=== PATIENT | male | born 1950 | race Caucasian/White ===

== ENCOUNTER 2022-04-07 13:38 | Observation (INO) ==
--- NOTE | 2022-04-07 14:06 | Emergency Department Note ---
HPI General Chief complaint: Neuro Symptoms/Deficit Stated complaint: Right sided Weakness Time Seen by Provider: 04/07/22 14:03 Source: patient Mode of arrival: ambulatory Limitations: no limitations History of Present Illness HPI Narrative: Narrative: Patient is a 71-year-old male with a complex past medical history presents to the emergency department due to concern for stroke. Patient was seen yesterday, and at that time there was concern for stroke as well. It was recommended patient be admitted, but patient requested outpatient work-up for stroke. Patient returns today because of worsening of his symptoms. He states that he has had the symptoms for approximately a day and a half at this time. He endorses slurred speech and right-sided weakness, as well as difficulty with balance because of this right-sided weakness. He states that this has worsened since yesterday. Patient also endorses right-sided facial droop. He states that he had headache this morning, but this has resolved. He also endorses a brief episode of chest pain last night that quickly resolved. He had difficulty describing this pain, but states he is not concerned about it now because it resolved. He endorses burning with urination. He denies any other symptoms at this time. Related Data Home Medications Medication Instructions Recorded Confirmed blood sugar diagnostic (ReliOn #10 ea 01/05/19 02/14/22 Prime Test Strips) blood-glucose meter (ReliOn Micro #1 ea 01/05/19 02/14/22 Glucose Monitor kit) cilostazol 100 mg tablet 100 mg PO BID 01/05/19 02/14/22 clopidogrel 75 mg tablet 75 mg PO QDAY 01/05/19 02/14/22 fenofibrate 160 mg tablet 160 mg PO QDAY 01/05/19 02/14/22 ipratropium 0.5 mg-albuterol 3 mg 3 ml inhalation QID PRN 01/05/19 02/14/22 (2.5 mg base)/3 mL nebulization soln lancets 26 gauge (ReliOn Thin #50 ea 01/05/19 02/14/22 Lancets) nitroglycerin 0.4 mg sublingual 0.4 mg sublingual Q5-15M PRN 03/29/19 02/14/22 tablet (Nitrostat) metformin 500 mg tablet,extended 1,000 mg PO BID 12/08/21 07/07/22 release 24 hr Previous Rx's Medication Instructions Recorded eplerenone 25 mg tablet 25 mg PO QDAY #60 tabs 08/29/21 febuxostat 80 mg tablet (Uloric) 40 mg PO QDAY #90 tabs 12/20/21 Allergies Allergy/AdvReac Type Severity Reaction Status Date / Time clindamycin Allergy Unknown Abdominal Verified 02/14/22 09:00 Pain Penicillins Allergy Unknown Abdominal Verified 02/14/22 09:00 Pain, anaphylaxis Sulfa (Sulfonamide Allergy Unknown Abdominal Verified 02/14/22 09:00 Antibiotics) Pain, anaphylaxis sulfate ion Allergy Unknown Unknown Verified 02/14/22 09:00 allopurinol Allergy skin Verified 02/14/22 09:00 peeling, blister ciprofloxacin AdvReac Intermediate Confusion Verified 02/14/22 09:00 fentanyl AdvReac Intermediate convulsions Verified 02/14/22 09:00 meperidine [From Demerol] AdvReac Intermediate heart Verified 02/14/22 09:00 palpitations nitrofurantoin AdvReac Intermediate Confusion Verified 02/14/22 09:00 spironolactone AdvReac Intermediate Swelling Verified 02/14/22 09:00 [From Aldactone] of Lip/Tongue/Throat Review of Systems ROS ROS Narrative: Narrative: Constitutional: Reports weakness (Right-sided); Denies fever Eyes: Denies eye pain or vision change ENT ED: Denies throat pain, hearing loss or rhinorrhea Cardiovascular: Reports chest pain (Brief yesterday evening, resolved); Denies dyspnea on exertion, orthopnea or edema Respiratory: Denies shortness of breath or cough Gastrointestinal: Denies abdominal pain, nausea, vomiting, diarrhea, constipation, hematochezia or melena Genitourinary: Reports dysuria; Denies frequency, hematuria or incontinence Musculoskeletal: Denies back pain or myalgia Integumentary: Denies rash or lesions Neurological: Reports headache (Brief this morning, resolved), weakness (Right- sided) and other (Right-sided facial droop and slurred speech); Denies numbness, confusion, abnormal gait or dizziness Psychiatric: Reports as per HPI and anxiety [facility] Narrative Patient History Narrative: Narrative: Medical/Surgical/Family History All Active Problems (Updated 04/07/22 @ 15:16 by Slava Mai MD) Dizziness (Chronic) Renal stone (Chronic) Renal cyst (Chronic) Diabetes (Chronic) Hyperlipidemia (Chronic) Obesity (Chronic) Tobacco dependence syndrome (Chronic) Persistent insomnia (Chronic) EVERETT (obstructive sleep apnea) (Chronic) Benign essential hypertension (Chronic) PVD (peripheral vascular disease) (Chronic) COPD (chronic obstructive pulmonary disease) (Chronic) Chronic GERD (Chronic) Mass of urinary bladder (Chronic) BPH with urinary obstruction (Chronic) Generalized osteoarthritis of multiple sites (Chronic) Injury of median nerve (Chronic) Gout (Chronic) Dissection of abdominal aorta (Chronic) Right lower quadrant abdominal pain (Chronic) Confusional state (Chronic) Lower urinary tract symptoms (LUTS) (Chronic) Hematuria (Chronic) Urinary retention (Chronic) Foot pain, right (Chronic) Fatigue (Chronic) Pulse irregularity (Chronic) Chest pain (Chronic) SOB (shortness of breath) (Chronic) Suprapubic catheter (Chronic) Urethral stricture (Chronic) Medullary sponge kidney (Chronic) Acute retention of urine (Acute) Urinary tract infection (Acute) Weakness (Acute) [place] (Acute) Cigarette smoker (Acute) Recurrent nephrolithiasis (Chronic) Chronic Kidney Disease (Acute) Hypercalciuria (Acute) Contusion of head (Acute) Acute UTI (Acute) Hyperuricemia (Acute) Atypical chest pain (Acute) Anxiety (Acute) CKD stage G3a/A2, GFR 45-59 and albumin creatinine ratio 30-299 mg/g (Acute) DM type 2 (diabetes mellitus, type 2) (Acute) Bladder cancer (Acute) Diverticulitis (Acute) Fever (Acute) Chronic UTI (Acute) Abdominal pain (Acute) Diverticulitis (Acute) Cyst (Acute) Essential hypertension (Acute) Stroke (Acute) Stroke (Acute) Medical History Abnormal PFT Acute retention of urine Benign essential hypertension Goal BP 130/80 which is achieved at present. BPH with urinary obstruction Chest pain Chronic GERD Confusional state COPD (chronic obstructive pulmonary disease) Diabetes Dissection of abdominal aorta Fatigue Fever Foot pain, right Generalized osteoarthritis of multiple sites Gout Hematuria Hyperlipidemia On simvastatin Injury of median nerve Closed Lower urinary tract symptoms (LUTS) Mass of urinary bladder Medullary sponge kidney As above Obesity EVERETT (obstructive sleep apnea) Pancreatitis Persistent insomnia Pulse irregularity PVD (peripheral vascular disease) carotid, ascad, AAA and iliac involvement Still smokes DM and HTN as well Recurrent nephrolithiasis Passes 2 or 3 stones a year since an early age. About half of his siblings have had kidney stone disease. None of his siblings have any documentation of medullary sponge kidney. There is CT evidence of Ca+2 stone and what radiologist called vascular but limited to medullary portion of the kidney and family Hx of stone formers is c/w Medullary Sponge Kidney Renal cyst Renal stone 6-7 a year for several years Right lower quadrant abdominal pain SOB (shortness of breath) Suprapubic catheter Tobacco dependence syndrome Urethral stricture Urinary retention Urinary tract infection Surgical History H/O excision of mass (07/26/18) Bladder mass History of suprapubic catheter History of surgery Attempted peripheral vascular stents was too extensive of blockage to have any success. Family History Mother , at age 91 Breast cancer Hypertension Father , at age 76 Alzheimers disease Sister COPD (chronic obstructive pulmonary disease) Social History Alcohol Intake Frequency: does not drink Substance Use: does not use Exam Narrative Narrative: Narrative: General Limitations: no limitations General appearance: Present alert and in no apparent distress; Absent anxious or appears intoxicated Head Head: Present atraumatic and normocephalic Eye Eye: Present PERRL, EOMI and visual mustafa intact; Absent scleral icterus or nystagmus ENT ENT: Present mucous membranes moist; Absent nasal congestion Neck Neck: Present full ROM; Absent tenderness Chest Chest: Present normal inspection and symmetric chest wall rise; Absent tenderness Respiratory Respiratory: Present normal lung sounds bilaterally; Absent respiratory distress or accessory muscle use Cardiovascular Cardiovascular: Present regular rate, normal rhythm and normal heart sounds Adbominal Abdominal: Present soft and normal bowel sounds; Absent distention or tenderness Extremities Extremities: Present normal inspection and full ROM; Absent tenderness Back Back: Present normal inspection and full ROM; Absent tenderness Neurological Neurological: Present alert, oriented X3, motor sensory deficit and reflexes normal; Absent CN II-XII intact Psychiatric Psychiatric: Present normal affect and normal mood Skin Skin: Present warm (WNL), dry and normal color Course Vital Signs Vital signs: Vital Signs Pulse Rate 73 04/07/22 14:05 Respiratory Rate 21 04/07/22 14:05 Pulse Oximetry (%) 93 04/07/22 14:05 Pulse Rate 67 04/07/22 14:24 Respiratory Rate 22 04/07/22 14:24 Blood Pressure 159/77 04/07/22 14:24 Pulse Oximetry (%) 94 04/07/22 14:24 MDM MDM Narrative Medical decision making narrative: Narrative: Patient is a 71-year-old male who presents to the emergency department due to concern for worsening strokelike symptoms. Because patient was seen yesterday and had a evaluation performed I spoke to neurology who recommended the same recommendations as yesterday. I spoke to patient about these recommendations and he agreed to admission at this time. Because of patient's headache this morning a CT scan without contrast of the head was performed. I did not see any findings concerning for intracranial bleed. I did speak to our hospitalist who has agreed to see and evaluate patient for admission. Lab Data Result diagrams: 04/07/22 13:50 Labs: Lab Results 04/07/22 04/07/22 Range/Units 13:50 14:12 WBC 7.9 (4.5-11.0) K/mcL RBC 5.81 (4.63-6.08) M/mcL Hgb 16.0 (13.7-17.5) g/dL Hct 49.8 (40.1-51.0) % POC Hct 51.0 (41-55) MCV 85.7 (80.0-100.0) fL MCH 27.5 (26.0-34.0) pg MCHC 32.1 (31.0-36.0) g/dL RDW 15.9 H (11.5-14.5) % Plt Count 365 (140-440) K/mcL MPV 9.5 (7.4-10.4) fL Immature Gran % (Auto) 0.6 H (0.0-0.5) % Neut % (Auto) 63.6 (38.0-78.0) % Lymph % (Auto) 23.4 (15.5-49.0) % [place] % (Auto) 7.9 (1.0-12.0) % Eos % (Auto) 3.2 (0.0-7.0) % Baso % (Auto) 1.3 (0.0-2.0) % Lymph # (Auto) 1.84 (1.50-4.80) K/mcL [place] # (Auto) 0.62 (0.10-0.90) K/mcL Eos # (Auto) 0.25 (0.00-0.70) K/mcL Baso # (Auto) 0.10 (0.00-0.30) K/mcL Immature Gran # 0.05 (0.00-0.05) K/mcl Absolute Neutrophils 5.00 (1.80-8.00) K/mcL POC Sodium 141 (133-145) POC Potassium 4.3 (3.3-5.1) POC Chloride 104 (96-108) POC Total CO2 25.0 (22-30) POC BUN 23 H (6-20) POC Creatinine 1.4 H (0.6-1.2) POC Glucose 95 (70-105) POC WB Ioniz Calcium 1.21 (1.16-1.32) Discharge Plan Patient/Caregiver Discharge Instructions Pt seen by SR. UNIX SYSTEM ADMINISTRATOR/PA only: No Clinical Impression: Stroke Patient Disposition: Xfer As Inpt ([facility]) Follow up with: Radha Stubbs ARNP [Primary Care Provider] - Prescriptions: No Action eplerenone 25 mg tablet 25 mg PO QDAY Qty: 60 11RF Rx Instructions: Replaces spironolactone due to adverse Rxn to spironolactone febuxostat [Uloric] 80 mg tablet 40 mg PO QDAY Qty: 90 3RF Rx Instructions: Rash with Allopurinol Gout and Uric acid stones and uric acid level > 11 Febuxostat is the only safe medical option for him...he failed allopurinol due to allergic reaction cilostazol 100 mg tablet 100 mg PO BID clopidogrel 75 mg tablet 75 mg PO QDAY fenofibrate 160 mg tablet 160 mg tablet 160 mg PO QDAY ipratropium-albuterol 0.5 mg-3 mg(2.5 mg base)/3 mL solution for nebulization 3 ml INHALATION QID PRN (DME) blood-glucose meter [ReliOn Micro Glucose Monitor] kit See Dose Instructions .ROUTE .MEDSUPPLY Qty: 1 Rx Instructions: As directed (DME) ReliOn Prime Test Strips strip See Dose Instructions .ROUTE .MEDSUPPLY Qty: 10 Rx Instructions: As directed (DME) lancets [ReliOn Thin Lancets] 26 gauge misc See Dose Instructions .ROUTE .MEDSUPPLY Qty: 50 Rx Instructions: As directed metformin 500 mg tablet extended release 24 hr 1,000 mg PO BID nitroglycerin [Nitrostat] 0.4 mg tablet, sublingual 0.4 mg SUBLINGUAL Q5-15M PRN fluticasone furoate [Arnuity Ellipta] 100 mcg/actuation blister with device 0RF
[2022-04-07 14:15] LABS: POC Calcium, Ionized 1.21 (1.16-1.32); POC Creatinine 1.4 (0.6-1.2); POC Potassium 4.3 (3.3-5.1)
[2022-04-07 14:37] LABS: Basophils % (Auto) 1.3 % (0.0-2.0); Eosinophils # (Auto) 0.25 K/mcL (0.00-0.70); Eosinophils % (Auto) 3.2 % (0.0-7.0); Hematocrit 49.8 % (40.1-51.0); Lymphocytes # (Auto) 1.84 K/mcL (1.50-4.80); Lymphocytes % (Auto) 23.4 % (15.5-49.0); Mean Cell Volume 85.7 fL (80.0-100.0); Mean Corpuscular HGB Conc 32.1 g/dL (31.0-36.0); Mean Platelet Volume 9.5 fL (7.4-10.4); Monocytes # (Auto) 0.62 K/mcL (0.10-0.90); Monocytes % (Auto) 7.9 % (1.0-12.0); Neutrophils % (Auto) 63.6 % (38.0-78.0); Platelet Count 365 K/mcL (140-440); RBC 5.81 M/mcL (4.63-6.08); Red Cell Distribution Width 15.9 % (11.5-14.5); WBC 7.9 K/mcL (4.5-11.0)
--- NOTE | 2022-04-07 15:23 | Cat Scan Report ---
CLINICAL INFORMATION: Headache facial droop right-sided weakness possible CVA or the past 1.5 days COMPARISON: None. TECHNIQUE: 2.5 mm helical slices were obtained in the skull base to vertex. Following reconstruction, axial reformatted images were reviewed at bone and parenchymal windows. The exam was performed using radiation dose optimization techniques including, but not limited to, automated exposure control, adjustment of the mA and/or kV according to patient size and use of iterative reconstruction technique. FINDINGS: The ventricles, sulci, fissures, and cisterns are symmetrically enlarged compatible with mild age-related atrophy. No extra-axial fluid collections are identified. Mild patchy chronic ischemic changes, in the deep cerebral white matter, are expected for age. There is no hemorrhage, mass effect, or edema. Bone windows show no osseous abnormality. IMPRESSION: Mild atrophy and chronic ischemic changes in the deep cerebral white matter-expected for age. No change from CT yesterday. No acute findings 14 mm scalp lesion in the left occipital region is actually unchanged from the remote study 2020. This is likely a epidermoid cyst or other benign entity. Please correlate with physical exam findings Interpreted and Authenticated by: Tez Giordano 04/07/22
--- NOTE | 2022-04-07 15:38 | Internal Med History&Physical ---
HPI History of Present Illness Patient information: Note initiated : 04/07/22 at 3:28 pm Service Date, if different from initiated Date: [] Patient: Tk Maria 71 y/o M admitted on for Right sided Weakness. Chief Complaint: [] History of present illness: Mr. Maria is a 71 year old M Patient presents to the ED again today with right-sided weakness. He was here yesterday for the following reason, see HPI: [[[[Presents today to the hospital with generalized weakness and slurring and difficulty ambulating. Patient is a retired nurse. He states that yesterday around noon he started developing weakness and his noticed slurring of speech, he also felt a little foggy mentally. He did not think too much of it or thought it would pass. This morning he felt mentally more clear but when he got up to walk he felt very unstable on his feet and he also had difficulty in coordination with his right upper extremity while drinking coffee. He also continued to have the slurring for his . In the ED he had a stroke work-up including CTA head and neck which was negative per ED physician. Pending official report. Patient was hypertensive (SBP 180's) on admission and states his systolic blood pressure typically runs in the 150s Patient has a history of COPD not on home oxygen as well as obstructive sleep apnea used to wear CPAP but does not wear anymore. History of diabetes. Vascular disease and still smoking 2 to 3 packs a day stating he cut down from 5 in the past.]]]] He state this morning he felt the symptoms are worse with worsening right-sided weakness and more slurring. He also says he has a urinary tract infection that he knows because of the burning and the smell. He has a suprapubic catheter. No other complaints other than some diarrhea which he said he has on and off. Stroke protocol initiated in the ED. No acute findings on the imaging. Case discussed kevin with stroke neurology. BUN/creatinine elevated. Patient states he took a full dose aspirin this morning as well as his Plavix. I do not see any statins on his medication list but I do see fenofibrate. Review of Systems: Pertinent positives as above. Denies headache/fever/chills/nausea/vomiting/chest or abdominal pain/cough/dyspnea. Remaining 10 point review of system reviewed negative PFSH PFSH All Active Problems (Updated 04/07/22 @ 15:16 by Slava Mai MD) Dizziness (Chronic) Renal stone (Chronic) Renal cyst (Chronic) Diabetes (Chronic) Hyperlipidemia (Chronic) Obesity (Chronic) Tobacco dependence syndrome (Chronic) Persistent insomnia (Chronic) EVERETT (obstructive sleep apnea) (Chronic) Benign essential hypertension (Chronic) PVD (peripheral vascular disease) (Chronic) COPD (chronic obstructive pulmonary disease) (Chronic) Chronic GERD (Chronic) Mass of urinary bladder (Chronic) BPH with urinary obstruction (Chronic) Generalized osteoarthritis of multiple sites (Chronic) Injury of median nerve (Chronic) Gout (Chronic) Dissection of abdominal aorta (Chronic) Right lower quadrant abdominal pain (Chronic) Confusional state (Chronic) Lower urinary tract symptoms (LUTS) (Chronic) Hematuria (Chronic) Urinary retention (Chronic) Foot pain, right (Chronic) Fatigue (Chronic) Pulse irregularity (Chronic) Chest pain (Chronic) SOB (shortness of breath) (Chronic) Suprapubic catheter (Chronic) Urethral stricture (Chronic) Medullary sponge kidney (Chronic) Acute retention of urine (Acute) Urinary tract infection (Acute) Weakness (Acute) [place] (Acute) Cigarette smoker (Acute) Recurrent nephrolithiasis (Chronic) Chronic Kidney Disease (Acute) Hypercalciuria (Acute) Contusion of head (Acute) Acute UTI (Acute) Hyperuricemia (Acute) Atypical chest pain (Acute) Anxiety (Acute) CKD stage G3a/A2, GFR 45-59 and albumin creatinine ratio 30-299 mg/g (Acute) DM type 2 (diabetes mellitus, type 2) (Acute) Bladder cancer (Acute) Diverticulitis (Acute) Fever (Acute) Chronic UTI (Acute) Abdominal pain (Acute) Diverticulitis (Acute) Cyst (Acute) Essential hypertension (Acute) Stroke (Acute) Stroke (Acute) Medical History Abnormal PFT Acute retention of urine Benign essential hypertension Goal BP 130/80 which is achieved at present. BPH with urinary obstruction Chest pain Chronic GERD Confusional state COPD (chronic obstructive pulmonary disease) Diabetes Dissection of abdominal aorta Fatigue Fever Foot pain, right Generalized osteoarthritis of multiple sites Gout Hematuria Hyperlipidemia On simvastatin Injury of median nerve Closed Lower urinary tract symptoms (LUTS) Mass of urinary bladder Medullary sponge kidney As above Obesity EVERETT (obstructive sleep apnea) Pancreatitis Persistent insomnia Pulse irregularity PVD (peripheral vascular disease) carotid, ascad, AAA and iliac involvement Still smokes DM and HTN as well Recurrent nephrolithiasis Passes 2 or 3 stones a year since an early age. About half of his siblings have had kidney stone disease. None of his siblings have any documentation of medullary sponge kidney. There is CT evidence of Ca+2 stone and what radiologist called vascular but limited to medullary portion of the kidney and family Hx of stone formers is c/w Medullary Sponge Kidney Renal cyst Renal stone 6-7 a year for several years Right lower quadrant abdominal pain SOB (shortness of breath) Suprapubic catheter Tobacco dependence syndrome Urethral stricture Urinary retention Urinary tract infection Surgical History H/O excision of mass (07/26/18) Bladder mass History of suprapubic catheter History of surgery Attempted peripheral vascular stents was too extensive of blockage to have any success. Family History Mother , at age 91 Breast cancer Hypertension Father , at age 76 Alzheimers disease Sister COPD (chronic obstructive pulmonary disease) Social History household members: alone education level: college occupational status: retired occupation: RN hx recent travel: No other: Children-7 alcohol intake frequency: does not drink substance use type: does not use seatbelt use: always working smoke detector in home: Yes firearms in home: No MEDS/ALLERGIES Home Medications and Allergies Home Medications Medication Instructions Recorded Confirmed Type blood sugar diagnostic (ReliOn #10 ea 01/05/19 02/14/22 History Prime Test Strips) blood-glucose meter (ReliOn Micro #1 ea 01/05/19 02/14/22 History Glucose Monitor kit) cilostazol 100 mg tablet 100 mg PO BID 01/05/19 02/14/22 History clopidogrel 75 mg tablet 75 mg PO QDAY 01/05/19 02/14/22 History fenofibrate 160 mg tablet 160 mg PO QDAY 01/05/19 02/14/22 History ipratropium 0.5 mg-albuterol 3 mg 3 ml inhalation QID PRN 01/05/19 02/14/22 History (2.5 mg base)/3 mL nebulization soln lancets 26 gauge (ReliOn Thin #50 ea 01/05/19 02/14/22 History Lancets) nitroglycerin 0.4 mg sublingual 0.4 mg sublingual Q5-15M PRN 03/29/19 02/14/22 History tablet (Nitrostat) metformin 500 mg tablet,extended 1,000 mg PO BID 07/18/21 02/14/22 History release 24 hr eplerenone 25 mg tablet 25 mg PO QDAY #60 tabs 08/29/21 02/14/22 Rx febuxostat 80 mg tablet (Uloric) 40 mg PO QDAY #90 tabs 12/20/21 02/14/22 Rx Allergies Allergy/AdvReac Type Severity Reaction Status Date / Time clindamycin Allergy Unknown Abdominal Verified 02/14/22 09:00 Pain Penicillins Allergy Unknown Abdominal Verified 02/14/22 09:00 Pain, anaphylaxis Sulfa (Sulfonamide Allergy Unknown Abdominal Verified 02/14/22 09:00 Antibiotics) Pain, anaphylaxis sulfate ion Allergy Unknown Unknown Verified 02/14/22 09:00 allopurinol Allergy skin Verified 02/14/22 09:00 peeling, blister ciprofloxacin AdvReac Intermediate Confusion Verified 02/14/22 09:00 fentanyl AdvReac Intermediate convulsions Verified 02/14/22 09:00 meperidine [From Demerol] AdvReac Intermediate heart Verified 02/14/22 09:00 palpitations nitrofurantoin AdvReac Intermediate Confusion Verified 02/14/22 09:00 spironolactone AdvReac Intermediate Swelling Verified 02/14/22 09:00 [From Aldactone] of Lip/Tongue/Throat EXAM Constitutional Vitals: Pulse Resp BP Pulse Ox 67 22 159/77 94 04/07/22 14:24 04/07/22 14:24 04/07/22 14:24 04/07/22 14:24 Exam: General: Alert, Awake, No acute Distress, obese Eyes/N/T: EOMI, PERRL,dryM Head/Neck: neck supple, normocephalic atraumatic CV: RRR, No murmurs, normal s1/s2 Pulm: Clear b/l, no wheezing/rhonchi/rales Abd: soft, nontender, +BS x4 Ext: no clubbing/cyanosis/edema Neuro: Alert, moves all extremities, right hemiplegia Arm>>>Leg, subtle slurring and slow speech but it is clear when he makes any effort. sensations intact b/l upper/lower. Face is symmetrical when he smiles. He also has dysmetria of the right upper extremity. No pronator drift Skin: warm/dry DATA Data Completed and Pending Labs: Labs from last 24 hours 04/07/22 04/07/22 14:12 13:50 WBC 7.9 RBC 5.81 Hgb 16.0 Hct 49.8 POC Hct 51.0 MCV 85.7 MCH 27.5 MCHC 32.1 RDW 15.9 H Plt Count 365 MPV 9.5 Immature Gran % (Auto) 0.6 H Neut % (Auto) 63.6 Lymph % (Auto) 23.4 [place] % (Auto) 7.9 Eos % (Auto) 3.2 Baso % (Auto) 1.3 Lymph # (Auto) 1.84 [place] # (Auto) 0.62 Eos # (Auto) 0.25 Baso # (Auto) 0.10 Immature Gran # 0.05 Absolute Neutrophils 5.00 POC Sodium 141 POC Potassium 4.3 POC Chloride 104 POC Total CO2 25.0 POC BUN 23 H POC Creatinine 1.4 H POC Glucose 95 POC WB Ioniz Calcium 1.21 A/P Narrative A/P Narrative: A: *Strokelike symptoms w/Righ hemiparesis Arm>>leg & RUE Dysmetria: -ABCD=6 -has been on plavix *FAUSTO on CKD II: *PVD: Vessels not amenable to stenting, has seen Dr. Caraballo and is on plavix *Tobacco abuse: Still smokes 2-3 packs a day *DM: *HTN: *COPD (no home O2): *EVERETT but does not use cpap, he did in the past and stopped using it: *CKD II: *possible UTI: pending UA P: -Permissive hypertension 24-48hrs -DAPT for 3-weeks then likely back to plavix. Statin, lipid panel -Smoking cessation counseling >3 minutes -IVF, hold epleronone for now -echo and mri -IH's -SSI, a1c -Home medication reconciliation -PT/OT/ST -ppx: Lovenox Time Spent With Patient Time: Total time spent is greater than 50% in coordination of care (as documented) at patient's floor/unit and/or counseling patient: Total time spent with greater than 50% in coordination of care (as documented) at patient's floor/unit and/or counseling patient:: 50 - 70 minutes QUALITY Stroke Symptom Onset Unknown: No
[2022-04-07] MEDS ORDERED: 0.9 % SODIUM CHLORIDE 1,000 ML IV ONE ×2 (15:40→16:23)
[2022-04-07] MEDS ORDERED: DEXTROSE 31 GM ORAL.SUSP PO PRN (16:23)
[2022-04-07] MEDS ORDERED: SENNOSIDES 1 TABLET PO PRN (16:23)
[2022-04-07] MEDS ORDERED: POLYETHYLENE GLYCOL 3350 17 GM PACKET PO PRN (16:23)
[2022-04-07] MEDS ORDERED: POTASSIUM CHLORIDE 40 MEQ in DEXTROSE 5% IN WATER 500 ML IV PRN (16:23)
[2022-04-07] MEDS ORDERED: ONDANSETRON 4 MG/2 ML VIAL IV PRN (16:23)
[2022-04-07] MEDS ORDERED: LABETALOL 5 MG/ML ML IV PRN (16:23)
[2022-04-07] MEDS ORDERED: MAGNESIUM SULFATE 2 GM/50 ML BAG IV PRN (16:23)
[2022-04-07] MEDS ORDERED: DEXTROSE 50% 50 ML VIAL IV PRN (16:23)
[2022-04-07] MEDS ORDERED: IPRATROPIUM/ALBUTEROL 3 ML AMPUL.NEB NEB PRN (16:23)
[2022-04-07] MEDS ORDERED: POTASSIUM CHLORIDE 20 MEQ TABLET PO PRN ×2 (16:23)
[2022-04-07] MEDS ORDERED: ACETAMINOPHEN 325 MG TABLET PO PRN (16:23)
[2022-04-07] MEDS ORDERED: METOCLOPRAMIDE 10 MG/2 ML VIAL IV PRN (16:23)
[2022-04-07] MEDS ORDERED: INSULIN LISPRO 1 UNIT/0.01 ML UNIT SQ SCH (17:00)
[2022-04-07 17:10] LABS: HDL Cholesterol 27 mg/dL (>40); Non-HDL Cholesterol 145 mg/dL (<130); Triglycerides 498 mg/dL (<150)
[2022-04-07 17:33] LABS: Appearance,Urine Clear (Clear); Bacteria,Urine FEW /hpf (0); Bilirubin,Urine Negative (Negative); Color,Urine Yellow; Culture Indicated,Urine yes; Glucose,Urine (UA) Negative (Negative); Ketones,Urine Negative (Negative); Leukocyte Esterase,Urine Trace /uL (Negative); Mucus,Urine FEW /hpf; Nitrate,Urine Negative (Negative); PH,Urine 5.5 (5.0-9.0); Specific Gravity,Urine 1.025 (1.000-1.035); Urine Blood Negative ery/mcL (Negative); Urine Budding Yeast FEW /hpf; Urine RBC 2 /hpf (0-3); Urine Squamous Epithelial Cell 0 /hpf (0-4); Urine WBC 33 /hpf (0-4); Urobilinogen,Urine Normal
[2022-04-07 17:45] LABS: Estimated Average Glucose(eAG) 126 mg/dL
[2022-04-07] MEDS ORDERED: NICOTINE 14 MG PATCH TOPICAL SCH ×2 (18:38→19:15)
[2022-04-07] MEDS ORDERED: NICOTINE 21 MG PATCH TOPICAL SCH (18:40)
--- NOTE | 2022-04-07 20:39 | Discharge Summary ---
Discharge Provider Provider IMPORTANT FOLLOW-UP INFORMATION FOR PCP: Patient information: Note initiated : 04/07/22 at 8:36 pm Service Date, if different from initiated Date: [] Patient: Tk Maria 71 y/o M admitted on 04/07/22 for Right sided Weakness. Chief Complaint: [] Date of admission: 04/07/22 16:14 Discharge date: 04/07/22 Primary care physician: Radha Stubbs Consults: 04/07/22 14:34 Consult to Physician [CONS] Stat Comment: Consulting Provider: Gio Owens Reason For Exam: Physician to Consult COURSE Hospital Course Hospital course: History of present illness: Mr. Maria is a 71 year old M Patient presents to the ED again today with right-sided weakness. He was here yesterday for the following reason, see HPI: [[[[Presents today to the hospital with generalized weakness and slurring and difficulty ambulating. Patient is a retired nurse. He states that yesterday around noon he started developing weakness and his noticed slurring of speech, he also felt a little foggy mentally. He did not think too much of it or thought it would pass. This morning he felt mentally more clear but when he got up to walk he felt very unstable on his feet and he also had difficulty in coordination with his right upper extremity while drinking coffee. He also continued to have the slurring for his . In the ED he had a stroke work-up including CTA head and neck which was negative per ED physician. Pending official report. Patient was hypertensive (SBP 180's) on admission and states his systolic blood pressure typically runs in the 150s Patient has a history of COPD not on home oxygen as well as obstructive sleep apnea used to wear CPAP but does not wear anymore. History of diabetes. Vascular disease and still smoking 2 to 3 packs a day stating he cut down from 5 in the past.]]]] He state this morning he felt the symptoms are worse with worsening right-sided weakness and more slurring. He also says he has a urinary tract infection that he knows because of the burning and the smell. He has a suprapubic catheter. No other complaints other than some diarrhea which he said he has on and off. Stroke protocol initiated in the ED. No acute findings on the imaging. Case discussed kevin with stroke neurology. BUN/creatinine elevated. Patient states he took a full dose aspirin this morning as well as his Plavix. I do not see any statins on his medication list but I do see fenofibrate. once again the patient decided to leave AMA. This time he waited till he got to the floor and then decided he would rather leave and stated he did not care if he was in the morning. A: *Strokelike symptoms w/Righ hemiparesis Arm>>leg & RUE Dysmetria: -ABCD=6 -has been on plavix *FAUSTO on CKD II: *PVD: Vessels not amenable to stenting, has seen Dr. Caraballo and is on plavix *Tobacco abuse: Still smokes 2-3 packs a day *DM: *HTN: *COPD (no home O2): *EVERETT but does not use cpap, he did in the past and stopped using it: *CKD II: *possible UTI: pending UA Discharge diagnosis: Strokelike symptoms Time Spent with Patient Time attestation: Total time spent providing and/or coordinating discharge services: Time spent: Less than 30 minutes EXAM Constitutional Vitals: Temp Pulse Resp BP Pulse Ox O2 Del Method 97.8 F 76 23 H 160/89 97 04/07/22 16:23 04/07/22 16:14 04/07/22 16:23 04/07/22 16:23 04/07/22 16:23 04/07/22 16:23 Discharge Data Data Completed and Pending Labs on day of discharge: Labs from last 24 hours 04/07/22 04/07/22 04/07/22 15:50 14:12 13:50 WBC RBC Hgb Hct POC Hct 51.0 MCV MCH MCHC RDW Plt Count MPV Immature Gran % (Auto) Neut % (Auto) Lymph % (Auto) [place] % (Auto) Eos % (Auto) Baso % (Auto) Lymph # (Auto) [place] # (Auto) Eos # (Auto) Baso # (Auto) Immature Gran # Absolute Neutrophils POC Sodium 141 POC Potassium 4.3 POC Chloride 104 POC Total CO2 25.0 POC BUN 23 H POC Creatinine 1.4 H POC Glucose 95 Hemoglobin A1c 6.0 Estim Average Glucose 126 POC WB Ioniz Calcium 1.21 Triglycerides 498 H Cholesterol 172 LDL Cholesterol, Calc TNP Non-HDL Cholesterol 145 H HDL Cholesterol 27 L Urine Color Yellow Urine Appearance Clear Urine pH 5.5 Ur Specific Levan 1.025 Urine Protein 30 mg/dl A Urine Glucose (UA) Negative Urine Ketones Negative Urine Occult Blood Negative Urine Nitrate Negative Urine Bilirubin Negative Urine Urobilinogen Normal Ur Leukocyte Esterase Trace A Urine RBC 2 Urine WBC 33 H Ur Squamous Epith Cells 0 Urine Bacteria Few A Urine Mucus Few A Urine Yeast (Budding) Few A Ur Culture Indicated? yes 04/07/22 13:50 WBC 7.9 RBC 5.81 Hgb 16.0 Hct 49.8 POC Hct MCV 85.7 MCH 27.5 MCHC 32.1 RDW 15.9 H Plt Count 365 MPV 9.5 Immature Gran % (Auto) 0.6 H Neut % (Auto) 63.6 Lymph % (Auto) 23.4 [place] % (Auto) 7.9 Eos % (Auto) 3.2 Baso % (Auto) 1.3 Lymph # (Auto) 1.84 [place] # (Auto) 0.62 Eos # (Auto) 0.25 Baso # (Auto) 0.10 Immature Gran # 0.05 Absolute Neutrophils 5.00 POC Sodium POC Potassium POC Chloride POC Total CO2 POC BUN POC Creatinine POC Glucose Hemoglobin A1c Estim Average Glucose POC WB Ioniz Calcium Triglycerides Cholesterol LDL Cholesterol, Calc Non-HDL Cholesterol HDL Cholesterol Urine Color Urine Appearance Urine pH Ur Specific Levan Urine Protein Urine Glucose (UA) Urine Ketones Urine Occult Blood Urine Nitrate Urine Bilirubin Urine Urobilinogen Ur Leukocyte Esterase Urine RBC Urine WBC Ur Squamous Epith Cells Urine Bacteria Urine Mucus Urine Yeast (Budding) Ur Culture Indicated? Discharge Plan Patient/Caregiver Discharge Instructions Prescriptions: No Action eplerenone 25 mg tablet 25 mg PO QDAY Qty: 60 11RF Rx Instructions: Replaces spironolactone due to adverse Rxn to spironolactone febuxostat [Uloric] 80 mg tablet 40 mg PO QDAY Qty: 90 3RF Rx Instructions: Rash with Allopurinol Gout and Uric acid stones and uric acid level > 11 Febuxostat is the only safe medical option for him...he failed allopurinol due to allergic reaction cilostazol 100 mg tablet 100 mg PO BID clopidogrel 75 mg tablet 75 mg PO QDAY fenofibrate 160 mg tablet 160 mg tablet 160 mg PO QDAY ipratropium-albuterol 0.5 mg-3 mg(2.5 mg base)/3 mL solution for nebulization 3 ml INHALATION QID PRN (DME) blood-glucose meter [ReliOn Micro Glucose Monitor] kit See Dose Instructions .ROUTE .MEDSUPPLY Qty: 1 Rx Instructions: As directed (DME) ReliOn Prime Test Strips strip See Dose Instructions .ROUTE .MEDSUPPLY Qty: 10 Rx Instructions: As directed (DME) lancets [ReliOn Thin Lancets] 26 gauge misc See Dose Instructions .ROUTE .MEDSUPPLY Qty: 50 Rx Instructions: As directed metformin 500 mg tablet extended release 24 hr 1,000 mg PO BID nitroglycerin [Nitrostat] 0.4 mg tablet, sublingual 0.4 mg SUBLINGUAL Q5-15M PRN fluticasone furoate [Arnuity Ellipta] 100 mcg/actuation blister with device 0RF Follow Up Plan Follow up with: Radha Stubbs ARNP [Primary Care Provider] - Patient Disposition: Left Against Medical Advice Discharge Orders: Discharge Order (Routine); Ordered 04/07/22 Ordered By: Gio Owens [facility] VTE Deep Vein Thrombosis/Pulmonary Embolism Present on Admission: No
[2022-04-07] MEDS ORDERED: ATORVASTATIN 40 MG TABLET PO SCH (21:00)
[2022-04-07] MEDS ORDERED: 0.9 % SODIUM CHLORIDE 10 ML SYRINGE IV SCH (22:00)
[2022-04-08] MEDS ORDERED: PANTOPRAZOLE 40 MG TABLET PO SCH (07:30)
--- NOTE | 2022-04-08 07:34 | EKG ---
[facility] Test Date: 2022-04-07 Pat Name: Tk Maria Department: ED Room: Gender: Male Right Of Way Agent: [place] : 1950 Requested By: Slava Mai Order Number: [id number] Reading MD: Tez Sheriff M.D. Measurements Intervals Labelle Rate: 81 P: 58 WY: 166 QRS: -11 QRSD: 92 T: 79 QT: 359 QTc: 417 Interpretive Statements Sinus rhythm Poor R wave progression. Electronically Signed On 04-08-2022 7:33:57 PDT by Tez Sheriff M.D. /[id number]
[2022-04-08] MEDS ORDERED: ASPIRIN 81 MG TAB.CHEW CHEWED SCH (09:00)
[2022-04-08] MEDS ORDERED: ENOXAPARIN 40 MG/0.4 ML SYRINGE SQ SCH (09:00)
[2022-04-08] MEDS ORDERED: CLOPIDOGREL 75 MG TABLET PO SCH (09:00)
[2022-04-08] MEDS ORDERED: NICOTINE 21 MG PATCH TOPICAL SCH (09:00)
[2022-04-08] MEDS ORDERED: NICOTINE 14 MG PATCH TOPICAL SCH (10:00)
== END 2022-04-07 19:30 | disposition left against medical advice (07) ==
LOC: ICU 13:38 → ED 13:38 → ICU 16:15
PROVIDERS: ADMIT Internal Medicine; ATTEND Internal Medicine